=== PATIENT | female | born 1960 | race African-American/Black ===

== ENCOUNTER 2016-07-17 19:50 | Emergency (ER) | payer OTHER ==
[~2016-07-17] VITALS: Ht 162.6 cm; Wt 63.5 kg
[~2016-07-17 19:50] MED LIST: AMOXICILLIN 50500 MG PO; COLACE100 MG PO; DILAUDID4 MG PO; FLONASE 0.05%50 MCG NASAL; IBUPROFEN 600600 M1 PO; LEVAQUIN 500 M500 MG PO; LOVENOX40 MG/0.4 SQ; MACROBID 100 M100 M1 PO; MIRALAX255 GM PO; NICOTINE PATCH1 EAC1 TD; NOHOMEMEDICATIONS; NORCO 5-325 TA1 EACH PO; PREDNISONE 20 M20 MG PO; PREVACID 30MG C30 M1 PO; SENNA PO; TRAMADOL 50 MG50 MG PO; TYLENOL325 MG PO; VENTOLIN HFA 1818 GM INH; VISTARIL 25 MG25 M1 PO; ZANTAC; ZPAK PO
[2016-07-17] MEDS ORDERED: ULTRAM 50MG TAB50 MG PO (20:12)
[2016-07-17] MEDS ORDERED: NORFLEX100 MG PO (20:12)
== END 2016-07-17 20:20 | disposition home or self-care (01) ==
LOC: ER 19:50
DX: T14.8 Other injury of unspecified body region (principal); M54.89 Other dorsalgia; M79.621 Pain in right upper arm; K21.9 Gastro-esophageal reflux disease without esophagitis; Z88.5 Allergy status to narcotic agent; Z88.2 Allergy status to sulfonamides; F17.210 Nicotine dependence, cigarettes, uncomplicated; F10.99 Alcohol use, unspecified with unspecified alcohol-induced disorder

== ENCOUNTER 2018-11-01 23:23 | Emergency (ER) | payer OTHER ==
[~2018-11-01] VITALS: Ht 162.6 cm; Wt 62.6 kg
[~2018-11-01 23:23] MED LIST changes: +NAPROSYN500 MG PO; +NORFLEX100 MG PO; +ROBAXIN500 MG PO; +ULTRAM 50MG TAB50 MG PO
[2018-11-01] MEDS ORDERED: NAPROSYN500 MG PO (23:41)
[2018-11-02 00:15] VITALS: BP 133/69
== END 2018-11-02 00:15 | disposition home or self-care (01) ==
LOC: ER 23:23
DX: H73.21 Unspecified myringitis, right ear (principal); K21.9 Gastro-esophageal reflux disease without esophagitis; F17.210 Nicotine dependence, cigarettes, uncomplicated; Z88.2 Allergy status to sulfonamides; Z88.6 Allergy status to analgesic agent